=== PATIENT | female | born 1945 | race Asian ===

== ENCOUNTER 2017-12-07 22:58 | Emergency (ER) | payer OTHER ==
[~2017-12-07] VITALS: Ht 152.4 cm; Wt 56.7 kg
[~2017-12-07 22:58] MED LIST: AMLO5TAB8 PO; AMPI500C49 PO; CLOP75TA PO; DOXA2TAB2 PO; METO50TE2 PO; PRAV20TA2 PO; VALS320T2 PO
[2017-12-07 23:00] VITALS: BP 172/77
--- NOTE | 2017-12-07 23:06 | NUR ---
TO BED # 3 VIA WHEEL CHAIRWITH THE SON
--- NOTE | 2017-12-07 23:13 | NUR ---
72 y/o f W/C/O UPPER ABD PAIN X LAST THURSDAY. PT DENIES ANY NAUSEA/VOMITITNG OR DIARRHEA. MED HX HTN, HYPERLIPEDEMIA.
--- NOTE | 2017-12-07 23:19 | NUR ---
Dr. Astorga evaluating patient at bedside.
[2017-12-07] MEDS ORDERED: NACL 0.9% 1,000 ML IV ONE (23:20)
[2017-12-07] MEDS ORDERED: KETOROLAC 30 MG/ML VIAL IVP ONE (23:20)
[2017-12-07 23:57] LABS: BASOPHILS % (AUTO) 0.2 % (0.0-2.0); EOSINOPHILS # (AUTO) 0.1 K/uL (0-0.4); EOSINOPHILS % (AUTO) 1.4 % (0.0-4.0); HEMATOCRIT 34.1 % (36-48); HEMOGLOBIN 10.4 g/dL (12.0-16.0); LYMPHOCYTES # (AUTO) 1.5 K/uL (2.5-16.5); LYMPHOCYTES % (AUTO) 22.4 % (20.5-51.1); MEAN CORPUSCULAR HEMOGLOBIN 22 pg (27-31); MEAN CORPUSCULAR HGB CONC 30 g/dL (33-37); MEAN CORPUSCULAR VOLUME 71.9 fL (80-94); MONOCYTES # (AUTO) 0.6 K/uL (0.8-1.0); NEUTROPHILS # (AUTO) 4.7 K/uL (1.8-7.7); PLATELET COUNT (AUTO) 234 K/uL (140-450); RED BLOOD CELL COUNT(AUTO) 4.74 MIL/uL (4.20-5.40); RED CELL DISTRIBUTION WIDTH 14.5 % (11.6-13.7); WHITE BLOOD COUNT (AUTO) 6.9 K/uL (4.8-10.8)
[2017-12-08 00:01] LABS: ANION GAP 13.9 (8-16); CARBON DIOXIDE 26.6 mmol/L (21-32); CHLORIDE 107 mmol/L (98-107); GLUCOSE 138 mg/dL (74-106); POTASSIUM 3.5 mmol/L (3.5-5.1); SODIUM SERUM 144 mmol/L (136-145); UREA NITROGEN, BLOOD 18 mg/dL (7-18)
--- NOTE | 2017-12-08 00:01 | NUR ---
PT TAKEN FOR CT VIA WHEELCHAIR.
[2017-12-08] MEDS ORDERED: PANTOPRAZOLE 40 MG INJ VIAL IVP ONE (00:05)
[2017-12-08 00:07] LABS: ALBUMIN 3.4 g/dL (3.4-5.0); ASPARTATE AMINOTRANSFERASE 40 U/L (15-37); TOTAL BILIRUBIN 0.2 mg/dL (0.0-1.0)
--- NOTE | 2017-12-08 00:54 | NUR ---
Patient appears to be resting comfortably in bed. Vital Signs within normal limits. Respirations even and unlabored.
[2017-12-08 01:22] VITALS: BP 140/68
--- NOTE | 2017-12-08 01:22 | NUR ---
Patient discharged with v/s stable. Written and verbal after care instructions given and explained. Patient alert, oriented and verbalized understanding of instructions. Ambulatory with steady gait. All questions addressed prior to discharge. ID band removed. Patient advised to follow up with PMD. Rx of PROTONIX, LACTULOSE, AND TRAMADOL given. Patient educated on indication of medication including possible reaction and side effects. Opportunity to ask questions provided and answered.
== END 2017-12-08 01:22 | disposition home or self-care (01) ==
LOC: MED 22:58
DX: R10.13 Epigastric pain (principal); I10 Essential (primary) hypertension; Z88.6 Allergy status to analgesic agent
CPT/HCPCS: 36415; 74176; 80053; 85025; 93005; 96361; 96374; 96375; 99285; C9113; J1885; J7030

== ENCOUNTER 2018-07-30 09:35 | Inpatient (IN) | payer OTHER ==
[~2018-07-30] VITALS: Ht 142.2 cm; Wt 50.3 kg
[2018-07-30 09:40] VITALS: BP 148/80
--- NOTE | 2018-07-30 09:45 | NUR ---
PT AMBULATES TO BED 11
--- NOTE | 2018-07-30 09:50 | NUR ---
72/ F BIB [facility]AGHTER, C/O OF HEADACHE X2 DAYS. JAIME IS INTERMITTENT ACHE 02/02. CHEST WALL PAIN IN THE MORNINGS ONLY, WITH DIFFICULTY BREATHING X 1 MONTH, DESCRIBES STABBING ONLY LAST A FEW MINS. PATIENT WAS DX WITH HTN A FEW MONTHS AGO AND SINCE THEN SHE C/O OF LEFT SIDED WEAKNESS WITH BLURRY VISION. PATIENT DENIES CHEST PAIN RADIATING, NO CHEST PAIN AT THIS TIME, DENIES BLURRY VISION, DIZZINESS, NUMBNESS OR TINGLING, N/V/D. PERRLA, BILATERAL EQUAL ARM STREGTHS, NO ARM DRIP, BLE STRENGTHS, CLEAR LUNG SONGS, BILATERAL PULSES NOTED, STRONG RADIAL, PEDAL PULSES, LESS THAN THREE SECOND CAP REFILL, AOX4, WITH STEADY GAIT, SAFETY PRECAUTIONS IN PLACE.
--- NOTE | 2018-07-30 09:54 | NUR ---
Patient being evaluated by physician at bedside.
[2018-07-30 10:25] LABS: BASOPHILS % (AUTO) 0.7 % (0.0-2.0); EOSINOPHILS # (AUTO) 0.1 K/uL (0-0.4); EOSINOPHILS % (AUTO) 1.9 % (0.0-4.0); HEMATOCRIT 34.7 % (36-48); HEMOGLOBIN 10.6 g/dL (12.0-16.0); LYMPHOCYTES # (AUTO) 1.2 K/uL (2.5-16.5); LYMPHOCYTES % (AUTO) 28.8 % (20.5-51.1); MEAN CORPUSCULAR HEMOGLOBIN 22 pg (27-31); MEAN CORPUSCULAR HGB CONC 31 g/dL (33-37); MEAN CORPUSCULAR VOLUME 71.2 fL (80-94); MONOCYTES # (AUTO) 0.4 K/uL (0.8-1.0); MONOCYTES % (AUTO) 10.9 % (1.7-9.3); NEUTROPHILS # (AUTO) 2.3 K/uL (1.8-7.7); NEUTROPHILS % (AUTO) 57.7 % (42.2-75.2); PLATELET COUNT (AUTO) 225 K/uL (140-450); RED BLOOD CELL COUNT(AUTO) 4.87 MIL/uL (4.20-5.40); RED CELL DISTRIBUTION WIDTH 14.8 % (11.6-13.7)
[2018-07-30 10:29] LABS: ANION GAP 10.4 (8-16); CARBON DIOXIDE 31.6 mmol/L (21-32); CHLORIDE 104 mmol/L (98-107); GLUCOSE 100 mg/dL (74-106); SODIUM SERUM 142 mmol/L (136-145); UREA NITROGEN, BLOOD 26 mg/dL (7-18)
--- NOTE | 2018-07-30 10:32 | NUR ---
RADIO TECH AT BEDSIDE TAKING PATIENT TO CT, VIA WHEELCHAIR.
--- NOTE | 2018-07-30 10:34 | NUR ---
PT TAKEN TO RADIOLOGY VIA WHEELCHAIR
[2018-07-30 10:35] LABS: ALBUMIN 3.6 g/dL (3.4-5.0); ASPARTATE AMINOTRANSFERASE 51 U/L (15-37); TOTAL BILIRUBIN 0.3 mg/dL (0.0-1.0)
--- NOTE | 2018-07-30 10:35 | NUR ---
DR. MACKEY AWARE OF PATIENT PAIN, HE STATES AFTER CT PAIN MEDICATION CAN BE DETERMINED.
[2018-07-30 10:56] LABS: APPEARANCE,URINE CLEAR (CLEAR); BILIRUBIN,URINE NEGATIVE (NEGATIVE); BLOOD, URINE NEGATIVE (NEGATIVE); COLOR,URINE YELLOW (YELLOW); LEUKOCYTE ESTERASE ,URINE NEGATIVE (NEGATIVE); NITRITE, URINE NEGATIVE (NEGATIVE); UGLUCOSE NEGATIVE (NEGATIVE)
[2018-07-30] MEDS ORDERED: ONDANSETRON 4 MG/2 ML VIAL IM/IVP PRN (11:55)
[2018-07-30] MEDS ORDERED: DOCUSATE SODIUM 100 MG GELCAP PO PRN (11:55)
[2018-07-30] MEDS ORDERED: LORazepam 2 MG/ML VIAL IM/IVP PRN (11:55)
[2018-07-30] MEDS ORDERED: KETOROLAC 15 MG/ML VIAL IVP PRN (12:25)
[2018-07-30] MEDS ORDERED: ECOTRIN 81 MG TABEC PO ONE (12:25)
[2018-07-30] MEDS ORDERED: hydrALAZINE 20 MG/ML VIAL IVP PRN (12:45)
--- NOTE | 2018-07-30 12:57 | NUR ---
PT TAKEN TO [facility] FLOOR BY DEIRDRE CAMPOS VIA WHEELCHAIR
[2018-07-30 13:00] LABS: MAGNESIUM 1.7 mg/dL (1.8-2.4); PHOSPHORUS 3.6 mg/dL (2.5-4.9); THYROID STIMULATING HORMONE 3.38 uIU/mL (0.34-3.74)
--- NOTE | 2018-07-30 13:05 | NUR ---
Pt report given to Merrick GILMORE. Transfer of care at this time.
[2018-07-30] MEDS ORDERED: HYDR100T79 PO (13:08)
[2018-07-30] MEDS ORDERED: TRI48 PO (13:08)
[2018-07-30] MEDS ORDERED: RANI150C PO (13:08)
[2018-07-30] MEDS ORDERED: AMLO5TAB PO (13:08)
[2018-07-30] MEDS ORDERED: HYDR-3298 PO (13:08)
[2018-07-30] MEDS ORDERED: MAG SULF 2000 MG/WATER PREMIX 50 ML IV ONE (13:10)
--- NOTE | 2018-07-30 13:15 | NUR ---
RECEIVED PT. FROM ER, TRANSPORTED VIA W/C. CHIEF COMPLAINT OF CHEST PAIN, CEPHALAGIA. BP 168/62 UPON ADMISSION INTO THE UNIT, ADMINISTERED HYDRALAZINE. SKIN INTACT, IV SITE LEFT ANTECUBITAL, NS RUNNING AT 40mL/HR; FLUSHED AND PATENT. PT. A/Ox4. WILL CONTINUE TO MONITOR.
[2018-07-30] MEDS: NACL 0.9% 1,000 ML IV SCH (13:22)
[2018-07-30 13:30] VITALS: BP 168/62
[2018-07-30] MEDS ORDERED: NITROGLYCERIN 0.4 MG TAB SL PRN (13:45)
[2018-07-30] MEDS ORDERED: ALBUTEROL SULFATE/IPRATROPIU 3 ML SOL IH PRN (13:45)
--- NOTE | 2018-07-30 13:45 | NUR ---
NOTIFIED DR LEMUS PT'S BP IS HIGH.
[2018-07-30] MEDS: MAGNESIUM SULFATE 1GM in DEXTROSE 5% 100 ML PREMIX IV SCH ×2 (13:52→15:13)
[2018-07-30] MEDS ORDERED: CLOP75TA26 PO (14:40)
[2018-07-30 16:00] VITALS: BP 121/50
--- NOTE | 2018-07-30 16:00 | NUR ---
CHECKED VITALS AT 1600, ALL WNL. WILL CONTINUE TO MONITOR
--- NOTE | 2018-07-30 19:28 | NUR ---
ENDORSED TO PM SHIFT RN; PATIENT VITALS WNL. WILL CONTINUE TO MONITOR
--- NOTE | 2018-07-30 19:29 | NUR ---
RECEIVED PT. FROM AM SHIFT NURSE. CHIEF COMPLAINT OF CHEST PAIN, CEPHALAGIA. A/Ox4. TELE PT. IV SITE LEFT AC G 22, NS RUNNING AT 40ML/HR. PLACED AT LOWEST BED POSITION. CALL LIGHT WITHIN REACH. WILL CONTINUE TO MONITOR.
[2018-07-30 20:00] VITALS: BP 140/52
[2018-07-30] MEDS: METOPROLOL 25 MG TAB PO SCH (20:54)
--- NOTE | 2018-07-30 21:04 | NUR ---
PT REFUSED HEPARIN. SHE SAID NO SHOT. WILL TALK TO DAUGHTER TO CONVINCE MOTHER TO HAVE HEPARIN INJECTION.
--- NOTE | 2018-07-30 21:05 | NUR ---
INFORMED DR. SHEEHAN RE: REFUSAL OF HEPARIN. HE SAID TO PUT PT ON SEQUENTIAL DEVICE FOR NOW. WILL CONVINCE PT. W/ THE HELP OF DAUGHTER.
[2018-07-30] MEDS: amLODIPine 5 MG TAB PO SCH (21:06)
--- NOTE | 2018-07-30 21:30 | NUR ---
INFORMED DAUGHTER THROUGH PHONE CALL, SHE SAID THAT HER MOTHER CONCEDES FOR HEPARIN INJECTION TOMORROW. INFORMED THE DAUGHTER OF THE BENEFITS AND RISKS. PT AND DAUGHTER VERBALIZED UNDERSTANDING.
[2018-07-31] VITALS: BP 126/57
--- NOTE | 2018-07-31 02:00 | NUR ---
PT SLEEPING IN STABLE CONDITION. NO COMPLAINTS AT THIS TIME.
[2018-07-31 04:00] VITALS: BP 130/54
--- NOTE | 2018-07-31 04:10 | NUR ---
PT SLEEPING, NO SOB NOTED. NO COMPLAINTS OF HEADACHE AND CHEST PAIN.
[2018-07-31 06:31] LABS: BASOPHILS % (AUTO) 0.7 % (0.0-2.0); EOSINOPHILS # (AUTO) 0.1 K/uL (0-0.4); EOSINOPHILS % (AUTO) 1.7 % (0.0-4.0); HEMATOCRIT 39.1 % (36-48); HEMOGLOBIN 11.9 g/dL (12.0-16.0); LYMPHOCYTES # (AUTO) 1.4 K/uL (2.5-16.5); LYMPHOCYTES % (AUTO) 29.9 % (20.5-51.1); MEAN CORPUSCULAR HEMOGLOBIN 22 pg (27-31); MEAN CORPUSCULAR HGB CONC 31 g/dL (33-37); MEAN CORPUSCULAR VOLUME 71.9 fL (80-94); MONOCYTES # (AUTO) 0.4 K/uL (0.8-1.0); MONOCYTES % (AUTO) 8.4 % (1.7-9.3); NEUTROPHILS # (AUTO) 2.8 K/uL (1.8-7.7); NEUTROPHILS % (AUTO) 59.3 % (42.2-75.2); PLATELET COUNT (AUTO) 269 K/uL (140-450); RED BLOOD CELL COUNT(AUTO) 5.44 MIL/uL (4.20-5.40); RED CELL DISTRIBUTION WIDTH 14.9 % (11.6-13.7); WHITE BLOOD COUNT (AUTO) 4.8 K/uL (4.8-10.8)
[2018-07-31 06:56] LABS: CHOL/HDL RATIO 2.3 (1-4.5)
[2018-07-31 06:57] LABS: ANION GAP 10.9 (8-16); CARBON DIOXIDE 30.3 mmol/L (21-32); CHLORIDE 104 mmol/L (98-107); CREATININE 0.9 mg/dL (0.6-1.3); GLUCOSE 130 mg/dL (74-106); POTASSIUM 4.2 mmol/L (3.5-5.1); SODIUM SERUM 141 mmol/L (136-145); UREA NITROGEN, BLOOD 22 mg/dL (7-18)
[2018-07-31 06:59] LABS: MAGNESIUM 2.1 mg/dL (1.8-2.4); PHOSPHORUS 3.2 mg/dL (2.5-4.9)
[2018-07-31] MEDS: PANTOPRAZOLE 40 MG TABEC PO SCH (07:05)
--- NOTE | 2018-07-31 07:30 | NUR ---
PATIENT WAS AWAKE, ALERT. RESPIRATION EVEN, UNLABOR ON ROOM AIR. SKIN DRY AND WARM. IV PATENT AND INTACT. ADMITTED HAVING MILD CHEST PAIN AND HEADACHE, BUT REFUSED PAIN MEDICATION AT THIS TIME. DENIED SOB, N/V. PLAN OF CARE WAS DISCUSSED WITH PATIENT. BED AT LOW POSITION, SIDE RAILS UP. CALL LIGHT WITHIN REACH
--- NOTE | 2018-07-31 07:30 | NUR ---
ENDORSED TO AM SHIFT NURSE WITH NO COMPLAINTS, AND IN STABLE CONDITION.
[2018-07-31 08:00] VITALS: BP 121/49
[2018-07-31] MEDS: FENOFIBRATE 48 MG TAB PO SCH (08:31)
[2018-07-31] MEDS: METOPROLOL 25 MG TAB PO SCH ×2 (08:31→20:08)
[2018-07-31] MEDS: CLOPIDOGREL 75 MG TAB PO SCH (08:31)
[2018-07-31] MEDS: HYDROCHLOROTHIAZIDE 25 MG TAB PO SCH (08:31)
[2018-07-31] MEDS: LOSARTAN 50 MG TAB PO SCH (08:32)
--- NOTE | 2018-07-31 10:15 | NUR ---
PATIENT WAS AWAKE, ALERT. RESPIRATION EVEN, UNLABOR ON ROOM AIR. NO DISTRESS NOTED AT THIS TIME.
[2018-07-31 12:00] VITALS: BP 134/51
[2018-07-31 12:21] LABS: FOLIC ACID 17.1 ng/mL (>3.0)
--- NOTE | 2018-07-31 12:30 | NUR ---
PATIENT WAS AWAKE, ALERT, EATING LUNCH COMFORTABLY. RESPIRATION EVEN, UNLABOR ON ROOM AIR. DENIED PAIN, SOB AT THIS TIME. NO DISTRESS NOTED. CALL LIGHT WITHIN REACH
--- NOTE | 2018-07-31 14:30 | NUR ---
PATIENT WAS AWAKE, ALERT. RESPIRATION EVEN, UNLABOR ON ROOM AIR. NO DISTRESS NOTED AT THIS TIME
[2018-07-31] MEDS: NACL 0.9% 1,000 ML IV SCH (15:27)
[2018-07-31 16:00] VITALS: BP 114/53
--- NOTE | 2018-07-31 16:00 | NUR ---
PATIENT AWAKE, ALERT. RESPIRATION EVEN, UNLABOR ON ROOM AIR. DENIED PAIN, SOB. NO DISTRESS NOTED AT THIS TIME. CALL LIGHT WITHIN REACH
--- NOTE | 2018-07-31 16:22 | NUR ---
Practice Manager Notes: I attempted to contact Patient's daughter Tammy Green at . No response and I left her my direct contact information and a request for a call back.
--- NOTE | 2018-07-31 18:15 | NUR ---
PATIENT WAS AWAKE, SITTING COMFORTABLY. RESPIRATION EVEN, UNLABOR ON ROOM AIR. IV PATENT AND INTACT. NO DISTRESS NOTED AT THIS TIME
--- NOTE | 2018-07-31 19:17 | NUR ---
ENDORSEMENT GIVEN TO LABORATORY IMMUNOLOGIST NURSE. PATIENT IS STABLE AT THIS TIME
--- NOTE | 2018-07-31 19:18 | NUR ---
REPORT RECEIVED FROM AM NURSE AT BEDSIDE. PT IN STABLE CONDITION. AAOX4. INTRODUCED SELF TO PT. BOARD UPDATED. NO COMPLAINTS OF CHEST PAIN. NO SOB. AFEBRILE. IV SITE L AC 22G RUNNING NS@40ML/HR PATENT AND INTACT. SKIN WARM, DRY, AND INTACT WITH NO OPEN WOUNDS. BED LOCKED IN LOW POSITION. CALL BARNEY WITHIN REACH. SAFETY PRECAUTIONS IN PLACE. ALL NEEDS MET AT THIS TIME. WILL CONTINUE TO MONITOR.
[2018-07-31 20:00] VITALS: BP 128/53
[2018-07-31] MEDS: amLODIPine 5 MG TAB PO SCH (20:08)
--- NOTE | 2018-07-31 20:08 | NUR ---
NORVASC AND LOPRESSOR GIVEN PO. PT TOLERATED WELL.
--- NOTE | 2018-07-31 22:30 | NUR ---
PT LAYING IN BED LISTENING TO MUSIC. NO S/S OF DISTRESS NOTED. WILL CONTINUE TO MONITOR.
[2018-08-01] VITALS: BP 121/54
--- NOTE | 2018-08-01 01:00 | NUR ---
PT SLEEPING COMFORTABLY BUT AROUSEABLE. NO S/S OF DISTRESS NOTED. WILL CONTINUE TO MONITOR.
--- NOTE | 2018-08-01 02:30 | NUR ---
PT SLEEPING COMFORTABLY BUT AROUSEABLE. NO S/S OF DISTRESS NOTED. WILL CONTINUE TO MONITOR.
[2018-08-01 04:00] VITALS: BP 134/57
[2018-08-01] MEDS: PANTOPRAZOLE 40 MG TABEC PO SCH (05:41)
--- NOTE | 2018-08-01 05:41 | NUR ---
PROTONIX GIVEN PO. PT TOLERATED WELL.
--- NOTE | 2018-08-01 06:13 | NUR ---
PATIENT HAS BEEN SCREENED AND CATEGORIZED MODERATE NUTRITION RISK. PATIENT WILL BE SEEN WITHIN 3-5 DAYS OF ADMISSION. 08/02/18-08/04/18 VIRGINIE WU MS, RDN
[2018-08-01] MEDS ORDERED: PNEUMOCOCCAL VACCINE 23 MCG/0.5 ML VIAL IMVAC PRN (06:50)
[2018-08-01] MEDS ORDERED: INFLUENZA VIRUS VACCINE QUAD 0.5 ML SYR IMVAC PRN (06:50)
--- NOTE | 2018-08-01 07:05 | NUR ---
REPORT GIVEN TO AM NURSE AT BEDSIDE. PT IN STABLE CONDITION.
[2018-08-01 07:10] LABS: HEMATOCRIT 38.2 % (36-48); HEMOGLOBIN 11.5 g/dL (12.0-16.0); MEAN CORPUSCULAR HEMOGLOBIN 22 pg (27-31); MEAN CORPUSCULAR HGB CONC 30 g/dL (33-37); MEAN CORPUSCULAR VOLUME 72.2 fL (80-94); PLATELET COUNT (AUTO) 262 K/uL (140-450); RED CELL DISTRIBUTION WIDTH 14.8 % (11.6-13.7); WHITE BLOOD COUNT (AUTO) 6.3 K/uL (4.8-10.8)
--- NOTE | 2018-08-01 07:24 | NUR ---
REPORT RECEIVED FROM INTERNAL REVENUE SERVICE AGENT RN AT BEDSIDE. PT IN STABLE CONDITION. AAOX4. INTRODUCED SELF TO PT. BOARD UPDATED. NO COMPLAINTS OF CHEST PAIN. NO SOB. AFEBRILE. IV SITE L AC 22G RUNNING NS@40ML/HR PATENT AND INTACT. SKIN WARM, DRY, AND INTACT WITH NO OPEN WOUNDS. BED LOCKED IN LOW POSITION. CALL BARNEY WITHIN REACH. SAFETY PRECAUTIONS IN PLACE. ALL NEEDS MET AT THIS TIME. WILL CONTINUE TO MONITOR.
[2018-08-01 07:28] LABS: ANION GAP 10.7 (8-16); CARBON DIOXIDE 30.7 mmol/L (21-32); CHLORIDE 106 mmol/L (98-107); CREATININE 0.9 mg/dL (0.6-1.3); GLUCOSE 93 mg/dL (74-106); POTASSIUM 4.4 mmol/L (3.5-5.1); SODIUM SERUM 143 mmol/L (136-145); UREA NITROGEN, BLOOD 22 mg/dL (7-18)
[2018-08-01 07:57] LABS: BASOPHILS % (MANUAL) 0 % (0-2); EOSINOPHILS % (MANUAL) 2 % (0-4); LYMPHOCYTES % (MANUAL) 42 % (20-46); MONOCYTES % (MANUAL) 9 % (5-12)
[2018-08-01 08:00] VITALS: BP 149/54
[2018-08-01] MEDS: LOSARTAN 50 MG TAB PO SCH (09:08)
[2018-08-01] MEDS: CLOPIDOGREL 75 MG TAB PO SCH (09:09)
[2018-08-01] MEDS: METOPROLOL 25 MG TAB PO SCH (09:10)
[2018-08-01] MEDS: HYDROCHLOROTHIAZIDE 25 MG TAB PO SCH (09:10)
[2018-08-01] MEDS: FENOFIBRATE 48 MG TAB PO SCH (09:11)
--- NOTE | 2018-08-01 09:21 | NUR ---
PT SLEEPING COMFORTABLY BUT AROUSEABLE. NO S/S OF DISTRESS NOTED. WILL CONTINUE TO MONITOR.
--- NOTE | 2018-08-01 11:51 | NUR ---
PT IN ROOM WALKING AROUND. NO SIGNS OF DISTRESS NOTED. CALL LIGHT WITHIN REACH, BED IN LOW POSITION.
[2018-08-01 12:00] VITALS: BP 139/52
[2018-08-01] MEDS ORDERED: TRI48 PO (12:17)
[2018-08-01] MEDS ORDERED: METO25TA14 PO (12:21)
[2018-08-01] MEDS: NACL 0.9% 1,000 ML IV SCH (12:30)
--- NOTE | 2018-08-01 13:40 | NUR ---
FAXED ALL PAPER WORK FOR [facility] , PER JONAS THEY CAN ACCEPT PATIENT AND WILL FOLLOW UP TOMORROW.
--- NOTE | 2018-08-01 15:20 | NUR ---
PT DISCHARGED TO HOME WITH DAUGHTER. IV REMOVED WITH TIP INTACT. NO SIGNS OF DISTRESS. EDUCATION GIVEN ON DISCHARGE AND NEW MEDICATIONS. NOTIFIED PT AND DAUGHTER OF HOME HEALTH VISITS FOR PT. PT AND DAUGHTER VERBALIZED UNDERSTANDING. PER PT AND DAUGHTER, PT RECEIVED PNA VACCINE AND FLU VACCINES IN APR 2018. NO NEED FOR VACCINES TO BE GIVEN AT THIS TIME. DISCHARGE PAPERWORK GIVEN TO PT. PT STABLE AT THIS TIME. NO SIGNS OF CHEST PAIN OR SOB. ARM BAND REMOVED AND PERSONAL BELONGINGS TAKEN WITH PT.
--- NOTE | 2018-08-02 10:02 | NUR ---
CALLED JONAS FROM [facility] AND CONFIRMED THEY GOT THE ORDER FOR HOME HEALTH. THEY WILL BE CONTACTING THE PATIENT TODAY.
== END 2018-08-01 15:20 | disposition home health service (06) | DRG 205 ==
LOC: MED 09:35 → MTU 11:58
PROVIDERS: ADMIT General Practice; ATTEND General Practice
DX: M94.0 Chondrocostal junction syndrome [Tietze] (principal); N17.0 Acute kidney failure with tubular necrosis; J98.11 Atelectasis; K21.9 Gastro-esophageal reflux disease without esophagitis; R51 Headache; I10 Essential (primary) hypertension; J32.3 Chronic sphenoidal sinusitis; I25.10 Atherosclerotic heart disease of native coronary artery without angina pectoris; E86.0 Dehydration; E66.3 Overweight; E83.42 Hypomagnesemia; D64.9 Anemia, unspecified; E78.00 Pure hypercholesterolemia, unspecified; F32.9 Major depressive disorder, single episode, unspecified; Z79.899 Other long term (current) drug therapy; Z88.5 Allergy status to narcotic agent; Z68.25 Body mass index [BMI] 25.0-25.9, adult
CPT/HCPCS: 36415; 70450; 71045; 80048; 80053; 81003; 82607; 82728; 82746; 83036; 83540; 83690; 83735; 83880; 84100; 84134; 84439; 84443; 84484; 85025; 85045; 85610; 85730; 87081; 97110; 99285; J0360; J1644; Q0092

== ENCOUNTER 2019-04-01 22:28 | Emergency (ER) | payer OTHER ==
[~2019-04-01] VITALS: Ht 149.9 cm; Wt 46.7 kg
[~2019-04-01 22:28] MED LIST changes: +AMLO5TAB PO; -AMLO5TAB8 PO; -AMPI500C49 PO; -CLOP75TA PO; +CLOP75TA26 PO; -DOXA2TAB2 PO; +HYDR-3298 PO; +HYDR100T79 PO; +METO25TA14 PO; -METO50TE2 PO; -PRAV20TA2 PO; +RANI150C PO; +TRI48 PO; -VALS320T2 PO
[2019-04-01 22:54] VITALS: BP 125/42
--- NOTE | 2019-04-01 22:55 | NUR ---
TRIAGE COMPLETED WITH USE OF NURSE GYNECOLOGY PHONE. NURSE GYNECOLOGY #[id number]. VSS. OKAY TO WAIT IN LOBBY FOR BED IN ED.
[2019-04-01] MEDS ORDERED: FENO145T PO (23:02)
[2019-04-01] MEDS ORDERED: PRAV20TA2 PO (23:04)
[2019-04-01 23:27] LABS: BASOPHILS % (AUTO) 0.2 % (0.0-2.0); EOSINOPHILS % (AUTO) 0.2 % (0.0-4.0); LYMPHOCYTES # (AUTO) 0.7 K/uL (2.5-16.5); MEAN CORPUSCULAR HEMOGLOBIN 22 pg (27-31); MEAN CORPUSCULAR HGB CONC 31 g/dL (33-37); MEAN CORPUSCULAR VOLUME 71.5 fL (80-94); MONOCYTES # (AUTO) 0.5 K/uL (0.8-1.0); MONOCYTES % (AUTO) 11.2 % (1.7-9.3); NEUTROPHILS % (AUTO) 71.4 % (42.2-75.2); PLATELET COUNT (AUTO) 227 K/uL (140-450); RED BLOOD CELL COUNT(AUTO) 5.03 MIL/uL (4.20-5.40); RED CELL DISTRIBUTION WIDTH 15.3 % (11.6-13.7); WHITE BLOOD COUNT (AUTO) 4.3 K/uL (4.8-10.8)
[2019-04-01 23:38] LABS: ANION GAP 9.4 (8-16); CHLORIDE 106 mmol/L (98-107); CREATININE 1.1 mg/dL (0.6-1.3); GLUCOSE 101 mg/dL (74-106); POTASSIUM 3.4 mmol/L (3.5-5.1); SODIUM SERUM 142 mmol/L (136-145); UREA NITROGEN, BLOOD 18 mg/dL (7-18)
[2019-04-01 23:43] LABS: ALBUMIN 3.7 g/dL (3.4-5.0); ASPARTATE AMINOTRANSFERASE 70 U/L (15-37); TOTAL BILIRUBIN 0.3 mg/dL (0.0-1.0)
--- NOTE | 2019-04-02 00:52 | NUR ---
73 Y/O FEMALE PRESENTS TO ED, C/O PAIN ON THROAT 03/05. PT STATES PAIN STARTED THURSDAY UNABLE TO ALLEVIATE PAIN. PT TOLERATES FOOD AND FLUID. PT HAS NO FEVER. PT HAS NON PRODUCTIVE COUGH. PT DENIES ANY SOB BUT C/O OF MILD CHEST PAIN 10/03. PT VSS. ERMD AWARE. WILL CONTINUE TO MONITOR.
[2019-04-02 02:40] VITALS: BP 119/56
--- NOTE | 2019-04-02 02:45 | NUR ---
PT DISCHARGED WITH PAPERWORK. RX MOTRIN, PREDNISONE. EDUCATED PT REGARDING MEDICATIONS AND S/E. EDUCATED PT REGARDING D/C DIAGNOSIS. PT VERBALIZED UNDERSTANDING OF TEACHING. TOLD PT TO FOLLOW UP WITH PCP AND WHEN TO RETURN TO ED. PT VSS. ALL QUESTIONS ANSWERED.
[2019-04-02] MEDS ORDERED: PRAV20TA2 PO (20:00)
[2019-04-02] MEDS ORDERED: METO50TE2 PO (20:00)
[2019-04-02] MEDS ORDERED: HYDR100T79 PO (20:00)
[2019-04-02] MEDS ORDERED: CLOP75TA55 PO (20:00)
[2019-04-02] MEDS ORDERED: HYDR-3298 PO (20:00)
[2019-04-02] MEDS ORDERED: FENO145T PO (20:00)
== END 2019-04-02 02:40 | disposition home or self-care (01) ==
LOC: MED 22:28
DX: R05 Cough (principal); R07.89 Other chest pain; I10 Essential (primary) hypertension; Z88.5 Allergy status to narcotic agent; Z79.899 Other long term (current) drug therapy
CPT/HCPCS: 36415; 71045; 80053; 81002; 85025; 99284

== ENCOUNTER 2019-04-02 16:34 | Inpatient (IN) | payer OTHER ==
[~2019-04-02] VITALS: Ht 149.9 cm; Wt 48.5 kg
[~2019-04-02 16:34] MED LIST changes: -AMLO5TAB PO; +FENO145T PO; +PRAV20TA2 PO; -RANI150C PO; -TRI48 PO
[2019-04-02 16:38] VITALS: BP 149/76
--- NOTE | 2019-04-02 16:44 | NUR ---
PT AMB TO BED 6 WITH STEADY GAIT
--- NOTE | 2019-04-02 16:50 | NUR ---
C/O FEVER AND CHEST DISCOMFORT WITH COUGH. 100.4 IN TRIAGE ORAL. WAS SEEN LAST NIGHT AND GIVEN PREDNISONE AND IBUPROFEN. PRESCRIPTION HAS BEEN FILLED AND PT IS TAKING ACCORDINGLY WITH NO RELIEF. PRODUCTIVE COUGH- THICK YELLOW, AND SNEEZING, RHINORRHEA. COARSE LUNG SOUNDS. SUPRACLAVICULAR RETRACTIONS. VISITED RELATIVE LAST WEEK WHO HAD FEVER AND COUGH. TOOK MOTRIN AT 1500 PMH- HIGH CHOLESTEROL, HTN
--- NOTE | 2019-04-02 16:55 | NUR ---
DR. ROSALES AT BEDSIDE EVALUATING PATIENT.
[2019-04-02] MEDS ORDERED: ACETAMINOPHEN 325 MG TAB PO ONE (17:00)
[2019-04-02] MEDS ORDERED: NACL 0.9% 1,000 ML IV ONE (17:02)
--- NOTE | 2019-04-02 17:09 | NUR ---
EMT AT BEDSIDE FOR EKG.
[2019-04-02] MEDS ORDERED: ACETAMINOPHEN 325 MG TAB ONE (17:15)
--- NOTE | 2019-04-02 17:16 | NUR ---
LABS AT BEDSIDE
--- NOTE | 2019-04-02 17:26 | NUR ---
XRAY AT BEDSIDE
[2019-04-02 17:40] LABS: BASOPHILS % (AUTO) 0.2 % (0.0-2.0); HEMATOCRIT 33.8 % (36-48); HEMOGLOBIN 10.6 g/dL (12.0-16.0); LYMPHOCYTES # (AUTO) 0.5 K/uL (2.5-16.5); LYMPHOCYTES % (AUTO) 9.6 % (20.5-51.1); MEAN CORPUSCULAR HEMOGLOBIN 22 pg (27-31); MEAN CORPUSCULAR HGB CONC 31 g/dL (33-37); MEAN CORPUSCULAR VOLUME 71.2 fL (80-94); MONOCYTES # (AUTO) 0.1 K/uL (0.8-1.0); MONOCYTES % (AUTO) 2.8 % (1.7-9.3); NEUTROPHILS # (AUTO) 4.5 K/uL (1.8-7.7); NEUTROPHILS % (AUTO) 87.4 % (42.2-75.2); PLATELET COUNT (AUTO) 190 K/uL (140-450); RED BLOOD CELL COUNT(AUTO) 4.74 MIL/uL (4.20-5.40); RED CELL DISTRIBUTION WIDTH 15.1 % (11.6-13.7); WHITE BLOOD COUNT (AUTO) 5.1 K/uL (4.8-10.8)
[2019-04-02 17:46] LABS: APPEARANCE,URINE CLEAR (CLEAR); BILIRUBIN,URINE NEGATIVE (NEGATIVE); BLOOD, URINE NEGATIVE (NEGATIVE); COLOR,URINE YELLOW (YELLOW); LEUKOCYTE ESTERASE ,URINE NEGATIVE (NEGATIVE); NITRITE, URINE NEGATIVE (NEGATIVE); UGLUCOSE NEGATIVE (NEGATIVE)
[2019-04-02 17:54] LABS: ANION GAP 10.7 (8-16); CARBON DIOXIDE 27.7 mmol/L (21-32); CHLORIDE 101 mmol/L (98-107); CREATININE 0.9 mg/dL (0.6-1.3); GLUCOSE 118 mg/dL (74-106); POTASSIUM 3.4 mmol/L (3.5-5.1); SODIUM SERUM 136 mmol/L (136-145); UREA NITROGEN, BLOOD 17 mg/dL (7-18)
[2019-04-02 17:57] LABS: PROTHROMBIN TIME 9.6 secs (10.8-13.4)
[2019-04-02 18:08] LABS: ALBUMIN 3.5 g/dL (3.4-5.0); ASPARTATE AMINOTRANSFERASE 61 U/L (15-37); LIPASE 357 U/L (73-393); TOTAL BILIRUBIN 0.4 mg/dL (0.0-1.0)
[2019-04-02] MEDS ORDERED: AZITHROMYCIN 500 MG in DEXTROSE 5% 250 ML IV ONE (18:35)
[2019-04-02] MEDS ORDERED: cefTRIAXone 1,000 MG VIAL ONE (18:51)
[2019-04-02] MEDS ORDERED: AZITHROMYCIN 500 MG INJ VIAL IV ONE (18:52)
[2019-04-02] MEDS ORDERED: ONDANSETRON 4 MG/2 ML VIAL IM/IVP PRN (19:00)
[2019-04-02] MEDS ORDERED: FAMOTIDINE 20 MG/2 ML VIAL IV PRN (19:00)
[2019-04-02] MEDS ORDERED: ACETAMINOPHEN 325 MG TAB PO PRN (19:00)
[2019-04-02] MEDS ORDERED: DOCUSATE SODIUM 100 MG GELCAP PO PRN (19:00)
--- NOTE | 2019-04-02 19:15 | NUR ---
Patient will be admitted to care of DR. SHORE. Admited to TELE. Will go to room 107B. Belongings list completed. Report to DEIRDRE FRIAS.
--- NOTE | 2019-04-02 19:30 | NUR ---
RECEIVED BEDSIDE REPORT FROM MORIAH CRUZ RN. PATIENT IS AWAKE, ALERT, AND COOPERATIVE. SPEAKING CHILEAN BUT UNDERSTAND SOME [place]. ADMITTING DIAGNOSIS FEVER, DYSPNEA. RESPIRATION EVEN UNLABORED ON ROOM AIR. NO DISTRESS NOTED. SKIN IS WARM AND DRY. IV PATENT AND INTACT. DENIES PAIN. HEART RATE REGULAR, S1 & S2 NOTED. LUNGS SOUNDS CLEAR ON AUSCULTATION. BOWEL SOUNDS ACTIVE AND PRESENT IN ALL 4 QUADRANTS. ABDOMEN SOFT AND NON-TENDER. LAST BM 03/31/19. VITALS WERE TAKEN. MRSA SCREEN DONE. ORIENT PATIENT TO ROOM, STAFF, AND CALL LIGHT. PATIENT IS AMBULATORY. ALL SAFETY MEASURES IN PLACE. PLAN OF CARE WAS DISCUSSED. BED IS AT LOW POSITION. CALL LIGHT WITHIN REACH AND VERBALIZES ITS USE. WILL CONTINUE TO MONITOR.
[2019-04-02 19:34] LABS: CHOL/HDL RATIO 2.5 (1-4.5); FREE T4 (FREE THYROXINE) 1.26 ng/dL (0.76-1.46); MAGNESIUM 1.6 mg/dL (1.8-2.4); PHOSPHORUS 2.8 mg/dL (2.5-4.9); THYROID STIMULATING HORMONE 1.71 uIU/mL (0.34-3.74)
[2019-04-02 19:54] LABS: CKMB RELATIVE INDEX 0.6 (0.0-2.5); CREATINE KINASE MB 3.9 ng/mL (0-3.6)
[2019-04-02] MEDS ORDERED: CLOP75TA55 PO (20:00)
[2019-04-02] MEDS ORDERED: METO50TE2 PO (20:00)
[2019-04-02] MEDS ORDERED: PRAV20TA2 PO (20:00)
[2019-04-02] MEDS ORDERED: HYDR-3298 PO (20:00)
[2019-04-02] MEDS ORDERED: HYDR100T79 PO (20:00)
[2019-04-02] MEDS ORDERED: FENO145T PO (20:00)
[2019-04-02] MEDS ORDERED: POTASSIUM CHLORIDE 10 MEQ TABER PO ONE (20:10)
[2019-04-02] MEDS ORDERED: KETOROLAC 15 MG/ML VIAL IVP PRN (20:10)
[2019-04-02] MEDS ORDERED: MELATONIN 3 MG TAB PO PRN (20:20)
[2019-04-02] MEDS ORDERED: MEDICATION REC. PHARMACY CONS. 1 EA MISC MC PRN (20:20)
--- NOTE | 2019-04-02 21:00 | NUR ---
ALL SCHEDULED MEDS WERE GIVEN PER ORDER. NO ASE NOTED. WILL CONTINUE TO MONITOR.
[2019-04-02] MEDS: SIMVASTATIN 10 MG TAB PO SCH (21:08)
[2019-04-02] MEDS: METOPROLOL 25 MG TAB PO SCH (21:08)
[2019-04-02] MEDS: hydrALAZINE 25 MG TAB PO SCH (21:09)
[2019-04-02] MEDS: NACL 0.9% 1,000 ML IV SCH (21:17)
[2019-04-02 22:17] VITALS: BP 159/58
--- NOTE | 2019-04-02 22:59 | NUR ---
PATIENT SLEEPING RESPIRATION EVEN UNLABORED ON ROOM AIR. NO DISTRESS NOTED. CALL LIGHT WITHIN REACH. WILL CONTINUE TO MONITOR.
[2019-04-03] VITALS: BP 141/58
--- NOTE | 2019-04-03 | NUR ---
VITALS WERE TAKEN. PATIENT IN STABLE CONDITION. NO DISTRESS NOTED. DENIES PAIN. WILL CONTINUE TO MONITOR.
[2019-04-03] MEDS ORDERED: MAG SULF 2000 MG/WATER PREMIX 50 ML IV SCH (01:00)
--- NOTE | 2019-04-03 01:23 | NUR ---
ADMINISTERED MAG SULFATE 2GM PER ORDER. WILL CONTINUE TO MONITOR.
--- NOTE | 2019-04-03 02:11 | NUR ---
CHECKED PATIENT. PATIENT SLEEPING RESPIRATION EVEN UNLABORED ON ROOM AIR. NO DISTRESS NOTED. WILL CONTINUE TO MONITOR.
[2019-04-03] MEDS ORDERED: guaiFENesin 20 MG/ML UDC PO PRN (02:50)
[2019-04-03] MEDS: hydrALAZINE 20 MG/ML VIAL IVP PRN ×2 (03:58→23:52)
--- NOTE | 2019-04-03 03:58 | NUR ---
VITALS WERE TAKEN. PATIENT BP 167/60 HR 65 PRN HYDRALAZINE ADMINISTERED PER ORDER. WILL RECHECK BP IN AN HOUR.
[2019-04-03 04:00] VITALS: BP 167/60
[2019-04-03] MEDS ORDERED: ALBUTEROL SULFATE/IPRATROPIU 3 ML SOL IH PRN (04:50)
--- NOTE | 2019-04-03 04:58 | NUR ---
REASSESSED PATIENT BP 160/[address] SOLIS IS AWARE OF THE RESULT. WILL CONTINUE TO MONITOR
[2019-04-03] MEDS ORDERED: ALBUTEROL SULFATE/IPRATROPIU 3 ML SOL IH SCH (06:00)
--- NOTE | 2019-04-03 07:09 | NUR ---
ENDORSED PATIENT TO DAY SHIFT NURSE, PATIENT IN STABLE CONDITION.
--- NOTE | 2019-04-03 07:10 | NUR ---
RECEIVED REPORT FROM GAGE DESIGNER NURSE ALTAGRACIA FOR CONTINUITY OF CARE. PT IN STABLE CONDITION. IV INTACT AND PATENT. RESPIRATIONS EVEN AND UNLABORED, ROOM AIR. SAFETY MEASURES IN PLACE. BED IN LOW POSITION. CALL LIGHT AT BEDSIDE. WILL CONTINUE TO MONITOR.
[2019-04-03 08:00] VITALS: BP 153/68
[2019-04-03 08:08] LABS: BASOPHILS % (AUTO) 0.1 % (0.0-2.0); HEMATOCRIT 36.1 % (36-48); HEMOGLOBIN 11.3 g/dL (12.0-16.0); LYMPHOCYTES # (AUTO) 1.5 K/uL (2.5-16.5); LYMPHOCYTES % (AUTO) 18.7 % (20.5-51.1); MEAN CORPUSCULAR HEMOGLOBIN 23 pg (27-31); MEAN CORPUSCULAR HGB CONC 31 g/dL (33-37); MEAN CORPUSCULAR VOLUME 72.1 fL (80-94); MONOCYTES # (AUTO) 0.7 K/uL (0.8-1.0); MONOCYTES % (AUTO) 8.5 % (1.7-9.3); NEUTROPHILS # (AUTO) 5.8 K/uL (1.8-7.7); NEUTROPHILS % (AUTO) 72.7 % (42.2-75.2); PLATELET COUNT (AUTO) 214 K/uL (140-450); RED BLOOD CELL COUNT(AUTO) 5.01 MIL/uL (4.20-5.40); RED CELL DISTRIBUTION WIDTH 15.5 % (11.6-13.7)
[2019-04-03 08:24] LABS: ANION GAP 13.9 (8-16); CARBON DIOXIDE 26.4 mmol/L (21-32); CHLORIDE 104 mmol/L (98-107); CREATININE 0.8 mg/dL (0.6-1.3); GLUCOSE 86 mg/dL (74-106); POTASSIUM 3.3 mmol/L (3.5-5.1); SODIUM SERUM 141 mmol/L (136-145); UREA NITROGEN, BLOOD 14 mg/dL (7-18)
[2019-04-03] MEDS: FENOFIBRATE 48 MG TAB PO SCH (08:43)
[2019-04-03] MEDS: AZITHROMYCIN 250 MG TAB PO SCH (08:43)
[2019-04-03] MEDS: CLOPIDOGREL 75 MG TAB PO SCH (08:44)
[2019-04-03] MEDS: LOSARTAN 50 MG TAB PO SCH (08:44)
[2019-04-03] MEDS: hydrALAZINE 25 MG TAB PO SCH ×2 (08:45→20:51)
[2019-04-03] MEDS: METOPROLOL 25 MG TAB PO SCH ×2 (08:45→20:52)
[2019-04-03] MEDS: LACTOBACILLUS RHAMNOSUS GG 1 EACH CAP PO SCH (08:45)
[2019-04-03] MEDS ORDERED: POTASSIUM CHLORIDE 10 MEQ TABER PO SCH ×2 (09:00→16:00)
[2019-04-03] MEDS ORDERED: MAG SULF 2000 MG/WATER PREMIX 100 ML IV ONE (09:00)
[2019-04-03] MEDS ORDERED: ACETYLCYSTEINE 10% (100 MG/ML) 100 MG/ML VIAL INH SCH (09:00)
--- NOTE | 2019-04-03 09:00 | NUR ---
GAVE ORDERED DUE MEDICATIONS AT THIS TIME. CORRECTION WARDEN KIM #[id number]. ALL PT QUESTIONS ANSWERED AT THIS TIME. PT TOLERATED WELL. BED IN LOW POSITION. CALL LIGHT AT BEDSIDE. WILL CONTINUE TO MONITOR.
[2019-04-03] MEDS: NACL 0.9% 1,000 ML IV SCH ×2 (10:00→23:51)
--- NOTE | 2019-04-03 11:25 | NUR ---
PT LYING IN BED SLEEP AT THIS TIME. RESPIRATIONS EVEN AND UNLABORED. BED IN LOW POSITION. CALL LIGHT AT BEDSIDE.
[2019-04-03 12:00] VITALS: BP 157/49
[2019-04-03] MEDS: ACETYLCYSTEINE 10% (100 MG/ML) 100 MG/ML VIAL INH SCH ×2 (13:41→20:06)
[2019-04-03] MEDS: ALBUTEROL SULFATE/IPRATROPIU 3 ML SOL IH SCH ×2 (13:41→20:05)
--- NOTE | 2019-04-03 13:42 | NUR ---
RT AT BEDSIDE FOR BREATHING TREATMENT. PT IN STABLE CONDITION. BED IN LOW POSITION. CALL LIGHT AT BEDSIDE. WILL CONTINUE TO MONITOR.
[2019-04-03] MEDS: BENZONATATE 100 MG CAPLF PO SCH ×2 (14:01→17:07)
[2019-04-03 16:00] VITALS: BP 149/66
--- NOTE | 2019-04-03 16:14 | NUR ---
PT LYING IN BED QUIETLY. OFFERED TO TURN ON TV, PT REFUSED. RESPIRATIONS EVEN AND UNLABORED, ROOM AIR. BED IN LOW POSITION. CALL LIGHT AT BEDSIDE. WILL CONTINUE TO MONITOR.
--- NOTE | 2019-04-03 17:57 | NUR ---
PT SITTING AT SIDE OF THE BED EATING DINNER AT THIS TIME. BED IN LOW POSITION. CALL LIGHT AT BEDSIDE. WILL CONTINUE TO MONITOR.
--- NOTE | 2019-04-03 19:10 | NUR ---
RECEIVED BEDSIDE REPORT FROM DAY SHIFT NURSE. PATIENT IS AWAKE, ALERT AND COOPERATIVE. RESPIRATION EVEN UNLABORED ON ROOM AIR. NO DISTRESS NOTED. SKIN IS WARM AND DRY. IV PATENT AND INTACT. DENIES PAIN. PLAN OF CARE WAS DISCUSSED. ALL SAFETY MEASURES IN PLACE. BED IS AT LOW POSITION. CALL LIGHT WITHIN REACH AND VERBALIZES ITS USE. WILL CONTINUE TO MONITOR.
--- NOTE | 2019-04-03 19:25 | NUR ---
GAVE REPORT TO EQUIPMENT STERILIZER NURSE KISSROB FOR CONTINUITY OF CARE. PT IN STABLE CONDITION.
--- NOTE | 2019-04-03 20:00 | NUR ---
INITIAL ASSESSMENT DONE. VITALS WERE TAKEN. PATIENT IN STABLE CONDITION. WILL CONTINUE TO MONITOR.
[2019-04-03] MEDS: SIMVASTATIN 10 MG TAB PO SCH (20:52)
--- NOTE | 2019-04-03 21:00 | NUR ---
ALL SCHEDULED MEDS WERE GIVEN PER ORDER. NO ASE NOTED. CALL LIGHT WITHIN REACH. WILL CONTINUE TO MONITOR.
[2019-04-04] VITALS: BP 186/65
--- NOTE | 2019-04-04 | NUR ---
RECIEVED PT AAOX4 ,NID ,RA ON NPO -FOR US OF ABD. IV SITE INTACT AND PATENT , DENIES ANY PAIN AT THIS TIME , PLAN OF VCARE DISCUSSED AND VERBALIZE UNDERSTANDING . ON SAFETY/ FALL PRECAUTION PROTOCOL , CALL LIGHT WITHIN REACH , WILL CONT. TO MONITOR. Addendum: 04/05/19 at 0509 by Carla Patton RN THE ABOVE NURSES NOTES ENTRY TIME 0000 IS AN ERROR ENTRY . THE ABOVE NURSES NOTE IS DATED TIME -1921 -IAN
--- NOTE | 2019-04-04 | NUR ---
VITALS WERE TAKEN. PATIENT COMPLAINED OF HEADACHE. PRN TYLENOL GIVEN PER ORDER. PATIENT BP 187/65 HR 65 PRN HYDRALEZINE GIVEN PER ORDER. WILL CONTINUE TO MONITOR.
--- NOTE | 2019-04-04 03:28 | NUR ---
CHECKED PATIENT. PATIENT SLEEPING RESPIRATION EVEN UNLABORED ON ROOM AIR. NO DISTRESS NOTED. WILL CONTINUE TO MONITOR.
[2019-04-04 06:35] LABS: BASOPHILS % (AUTO) 0.2 % (0.0-2.0); EOSINOPHILS % (AUTO) 0.4 % (0.0-4.0); HEMATOCRIT 34.1 % (36-48); HEMOGLOBIN 10.6 g/dL (12.0-16.0); LYMPHOCYTES % (AUTO) 36.5 % (20.5-51.1); MEAN CORPUSCULAR HEMOGLOBIN 22 pg (27-31); MEAN CORPUSCULAR HGB CONC 31 g/dL (33-37); MEAN CORPUSCULAR VOLUME 71.4 fL (80-94); MONOCYTES # (AUTO) 0.9 K/uL (0.8-1.0); MONOCYTES % (AUTO) 16.5 % (1.7-9.3); NEUTROPHILS # (AUTO) 2.5 K/uL (1.8-7.7); NEUTROPHILS % (AUTO) 46.4 % (42.2-75.2); PLATELET COUNT (AUTO) 193 K/uL (140-450); RED BLOOD CELL COUNT(AUTO) 4.77 MIL/uL (4.20-5.40); RED CELL DISTRIBUTION WIDTH 15.1 % (11.6-13.7); WHITE BLOOD COUNT (AUTO) 5.4 K/uL (4.8-10.8)
--- NOTE | 2019-04-04 06:41 | NUR ---
PATIENT SLEEPING RESPIRATION EVEN UNLABORED ON ROOM AIR. NO DISTRESS NOTED. WILL CONTINUE TO MONITOR.
--- NOTE | 2019-04-04 07:12 | NUR ---
ENDORSED PATIENT TO DAY SHIFT NURSE. PATIENT IN STABLE CONDITION.
--- NOTE | 2019-04-04 07:13 | NUR ---
RECEIVED ENDORSEMENT FROM TOBACCO ACREAGE MEASURER NURSE. PATIENT IS AAOX4, UZBEK SPEAKING. RESPIRATIONS ARE EVEN AND UNLABORED ON ROOM AIR. PATIENT DENIES ANY PAIN AT THIS TIME. RIGHT WRIST 22G IV INTACT, PATENT, AND INFUSING IVF. PLAN OF CARE WAS REVIEWED WITH PATIENT, PATIENT VERBALIZED UNDERSTANDING. SAFETY MEASURES IN PLACE, CALL LIGHT WITHIN REACH.
[2019-04-04] MEDS: ALBUTEROL SULFATE/IPRATROPIU 3 ML SOL IH SCH ×3 (07:24→21:06)
[2019-04-04] MEDS: hydrALAZINE 20 MG/ML VIAL IVP PRN (07:41)
--- NOTE | 2019-04-04 07:41 | NUR ---
ADMINISTERED HYDRALAZINE IVP PRN FOR BP 184/74 AND HR 71. PATIENT TOLERATED WELL. WILL CONTINUE TO MONITOR.
[2019-04-04 08:00] VITALS: BP 184/74
[2019-04-04 08:01] LABS: ANION GAP 15.5 (8-16); CARBON DIOXIDE 24.8 mmol/L (21-32); CHLORIDE 106 mmol/L (98-107); GLUCOSE 81 mg/dL (74-106); POTASSIUM 4.3 mmol/L (3.5-5.1); SODIUM SERUM 142 mmol/L (136-145)
[2019-04-04 08:02] LABS: CREATININE 0.8 mg/dL (0.6-1.3); UREA NITROGEN, BLOOD 12 mg/dL (7-18)
--- NOTE | 2019-04-04 08:28 | NUR ---
PATIENT HAS BEEN SCREENED AND CATEGORIZED HIGH NUTRITION RISK. PATIENT WILL BE SEEN WITHIN 1-2 DAYS OF ADMISSION. 04/04/[address]
[2019-04-04] MEDS: METOPROLOL 25 MG TAB PO SCH ×2 (09:00→09:07)
[2019-04-04] MEDS: hydrALAZINE 25 MG TAB PO SCH ×2 (09:02→16:55)
[2019-04-04] MEDS: FENOFIBRATE 48 MG TAB PO SCH (09:02)
[2019-04-04] MEDS: LOSARTAN 50 MG TAB PO SCH (09:03)
[2019-04-04] MEDS: AZITHROMYCIN 250 MG TAB PO SCH (09:03)
[2019-04-04] MEDS: BENZONATATE 100 MG CAPLF PO SCH ×3 (09:03→16:06)
[2019-04-04] MEDS: LACTOBACILLUS RHAMNOSUS GG 1 EACH CAP PO SCH (09:03)
[2019-04-04] MEDS: CLOPIDOGREL 75 MG TAB PO SCH (09:03)
--- NOTE | 2019-04-04 09:07 | NUR ---
ADMINISTERED SCHEDULED MEDICATIONS. PATIENT TOLERATED WELL. NO COMPLAINTS OF PAIN AT THIS TIME. NO OTHER NEEDS AT THIS TIME, WILL CONTINUE TO MONITOR.
--- NOTE | 2019-04-04 11:54 | NUR ---
PATIENT RESTING IN BED. DENIES ANY PAIN AT THIS TIME. NO OTHER NEEDS AT THIS TIME, WILL CONTINUE TO MONITOR.
[2019-04-04] MEDS: NACL 0.9% 1,000 ML IV SCH (13:07)
--- NOTE | 2019-04-04 13:07 | NUR ---
ADMINISTERED SCHEDULED MEDICATION. PATIENT TOLERATED WELL. NO OTHER NEEDS AT THIS TIME, WILL CONTINUE TO MONITOR.
--- NOTE | 2019-04-04 13:25 | NUR ---
*S.T. Bedside Swallow eval completed* See report. Pt presents w/ adequate oropharyngeal swallow function. No overt s/s aspiration observed across all textures. Pt able to self-feed without difficulty. Recommend: 1) Continue mechanical soft diet, thin liquids okay. Straws okay. 2) P.O. meds whole okay, one at a time. 3) Nsg to assist w/ repositioning and tray set-up to promote self-feeding. Pt is functioning at her reported baseline level. No further tx indicated at this time. DC to nsg care. Endorsed to DEIRDRE Taylor. Time [id number]
--- NOTE | 2019-04-04 15:02 | NUR ---
PATIENT SLEEPING, EASILY AROUSABLE. DENIES ANY PAIN AT THIS TIME. NO DISTRESS NOTED. NO OTHER NEEDS AT THIS TIME, WILL CONTINUE TO MONITOR.
--- NOTE | 2019-04-04 15:40 | NUR ---
04/04/19 RD INITIAL ASSESSMENT COMPLETED PLEASE REFER TO NUTRITION ASSESSMENT UNDER CARE ACTIVITY FOR ESTIMATED NUTRITIONAL NEEDS. 1. CONTINUE MECHANICAL SOFT NA2GM DIET TOLERATED 2. RD PROVIDED NUTRITION EDUCATION ON LOW SODIUM DIET. PATIENT ACCEPTED VIA CHUCKING MACHINE SET UP OPERATOR TOOL ON PHONE. 3. RD TO FOLLOW-UP 3-5 DAYS, MODERATE RISK NACHO TOM RD
[2019-04-04] MEDS ORDERED: HYDROCHLOROTHIAZIDE 25 MG TAB PO SCH (15:45)
[2019-04-04 16:00] VITALS: BP 151/59
[2019-04-04] MEDS ORDERED: hydrALAZINE 25 MG TAB PO SCH (16:00)
--- NOTE | 2019-04-04 16:06 | NUR ---
ADMINISTERED SCHEDULED MEDICATION.PATIENT TOLERATED WELL. PATIENT DENIES ANY PAIN. NO OTHER NEEDS AT THIS TIME. WILL CONTINUE TO MONITOR.
--- NOTE | 2019-04-04 17:16 | NUR ---
HUMAN RESOURCES OPERATIONS MANAGER AT BEDSIDE. NO OTHER NEEDS AT THIS TIME, WILL CONTINUE TO MONITOR.
--- NOTE | 2019-04-04 19:22 | NUR ---
ENDORSED TO PATIENT FOR CONTINUITY OF CARE. PATIENT IS STABLE AT THIS TIME. Addendum: 04/04/19 at 1923 by Claudia Bridges RN *ENDORSED TO PEN OR PENCIL ASSEMBLY MACHINE OPERATOR
[2019-04-04] MEDS ORDERED: METOPROLOL 25 MG TAB PO SCH (21:00)
[2019-04-04] MEDS: SIMVASTATIN 10 MG TAB PO SCH (21:16)
--- NOTE | 2019-04-04 21:30 | NUR ---
PT COMPLAINING OF HUNGRY -SHE KEEPS ASKING WHEN THE ULTRASOUND WILL BE DONE . FOLLOW UP TO ULTRASOUND DEPT - THEY SAID THEY ARE NOT ACCOMODATE THE PT. RIGHT NOW BECAUSE THEY ARE BUSY IN THE ER AT THIS TIME. -THEY SUGGEST IF THE ULTRASOUND ORDERED IS NOT STAT , - ALLOW PT TO HAVE FOOD INTAKE AND PUT ON NPO POST MN AND THE ULTRASOUND WILL BE DONE TIMBO. MORNING - INFORMED LEA- AGREED.
[2019-04-05] VITALS: BP 150/60
--- NOTE | 2019-04-05 | NUR ---
REMIND PT ON NPO FOR ULTRASOUND TIMBO. NO COMPLAIN MADE AT THIS TIME.
--- NOTE | 2019-04-05 04:00 | NUR ---
MADE ROUND . NO COMPLAIN MADE AT THIS TIME. CALL LIGHT WITH IN REACH.
--- NOTE | 2019-04-05 07:25 | NUR ---
RECEIVED REPORT FROM HOGSHEAD ROLLER NURSE FOR CONTINUITY OF CARE. PT IN STABLE CONDITION. RESPIRATIONS EVEN AND UNLABORED, ROOM AIR. IV INTACT AND PATENT. SAFETY MEASURES IN PLACE. BED IN LOW POSITION. CALL LIGHT AT BEDSIDE. WILL CONTINUE TO MONITOR.
[2019-04-05 08:00] VITALS: BP 123/63
[2019-04-05] MEDS: ALBUTEROL SULFATE/IPRATROPIU 3 ML SOL IH SCH ×2 (08:25→14:22)
[2019-04-05] MEDS ORDERED: HYDROCHLOROTHIAZIDE 25 MG TAB PO SCH (09:00)
[2019-04-05] MEDS ORDERED: METOPROLOL SUCCINATE 50 MG TABER PO SCH (09:00)
--- NOTE | 2019-04-05 09:01 | NUR ---
PT TALKING TO FRIEND AT BEDSIDE. PT IN STABLE CONDITION.
[2019-04-05] MEDS ORDERED: HYDR100T79 PO (09:11)
[2019-04-05] MEDS ORDERED: LACT10CA1 PO (09:13)
[2019-04-05] MEDS ORDERED: CEFT1SOL1 IV (09:13)
[2019-04-05] MEDS: hydrALAZINE 25 MG TAB PO SCH ×3 (09:30→18:06)
[2019-04-05] MEDS: LOSARTAN 50 MG TAB PO SCH (09:31)
[2019-04-05] MEDS: AZITHROMYCIN 250 MG TAB PO SCH (09:31)
[2019-04-05] MEDS: LACTOBACILLUS RHAMNOSUS GG 1 EACH CAP PO SCH (09:32)
[2019-04-05] MEDS: CLOPIDOGREL 75 MG TAB PO SCH (09:32)
[2019-04-05] MEDS: FENOFIBRATE 48 MG TAB PO SCH (09:33)
--- NOTE | 2019-04-05 09:55 | NUR ---
CONTACTED PATIENT'S DAUGHTER ADDISON WAGNER AT [phone] REGARDING DC PLAN TO [facility]. PATIENT'S DAUGHTER IS AGREEABLE TO IT BY STATING "OK, BUT CAN YOU WAIT FOR ME. I WILL BE THERE IN AN HOUR." Addendum: 04/05/19 at 1004 by Essie Ku CM REFERRALS FAXED TO [facility] [place] AT [phone].
--- NOTE | 2019-04-05 10:10 | NUR ---
RECEIVED A CALL FROM CHELO OF [facility], SHE STATED THAT THEY ARE ABLE TO ACCEPT THE PATIENT AND PATIENT WILL GO TO ROOM 38B UNDER THE CARE OF DR. NICOLETTE LEIJA.
[2019-04-05 10:14] LABS: FERRITIN 310 ng/mL (15-150); FOLIC ACID > 20.00 ng/mL (>3.0); TRANSFERRIN 318 mg/dL (200-370)
--- NOTE | 2019-04-05 10:15 | NUR ---
FOOTWEAR PRODUCTION MACHINE OPERATOR ETHEL AT BEDSIDE TALKING TO PT AND JAIME DAUGHTER. PT IN STABLE CONDITION.
[2019-04-05] MEDS: BENZONATATE 100 MG CAPLF PO SCH ×3 (10:24→18:05)
--- NOTE | 2019-04-05 12:03 | NUR ---
PT LYING IN BED SLEEPING AT THIS TIME. RESPIRATIONS EVEN AND UNLABORED. BED IN LOW POSITION. CALL LIGHT AT BEDSIDE. WILL CONTINUE TO MONITOR.
[2019-04-05] MEDS ORDERED: ALBU3SOL83 IH (12:08)
[2019-04-05] MEDS ORDERED: ROB PO (12:08)
[2019-04-05] MEDS ORDERED: BENZ100C6 PO (12:08)
[2019-04-05] MEDS ORDERED: ESCI10TA PO (12:09)
[2019-04-05] MEDS: NACL 0.9% 1,000 ML IV SCH (12:10)
[2019-04-05] MEDS ORDERED: GUAI-646 PO (12:41)
--- NOTE | 2019-04-05 13:26 | NUR ---
MET WITH PATIENT'S DAUGHTER ADDISON WAGNER AT THE FRONT LOBBY TOGETHER WITH SW. WE INFORMED HER OF DC PLAN TO [facility] THIS AFTER. SHE IS AGREEABLE WITH THE PLAN.
--- NOTE | 2019-04-05 14:22 | NUR ---
PT SITTING AT SIDE OF BED LOOKING OUT THE WINDOW IN STABLE CONDITION. BED IN LOW POSITION. CALL LIGHT AT BEDSIDE. WILL CONTINUE TO MONITOR.
--- NOTE | 2019-04-05 14:28 | NUR ---
CONTACTED CHANDLER ORTIZ AT [phone] [id number], NO ANSWER. LEFT MESSAGE.
--- NOTE | 2019-04-05 15:39 | NUR ---
CALLED [facility] SPOKE WITH ETHEL , [phone] PER ETHEL SHE ARRANGED TRANSPORT AND MINE MOTOR ENGINEER TIME 5:30 PM THE CONFIRMATION #[id number] . PROVIDE THE FLOOR NUMBER. SHE IS UNABLE TO GIVE ME THE TRANSPORTER NAME BUT WE CAN CHECK WITH THIS NUMBER [phone]
[2019-04-05 16:00] VITALS: BP 151/59
--- NOTE | 2019-04-05 16:30 | NUR ---
PT CHANGED AND CLEANED TO PREPARE FOR TRANSPORT TO [facility] AT 1730.
--- NOTE | 2019-04-05 17:14 | NUR ---
GAVE REPORT TO EILEEN STAFF NURSE AT [facility] FOR CONTINUITY OF CARE. EILEEN VERBALIZED UNDERSTANDING OF INSTRUCTIONS. ALL QUESTIONS ANSWERED AT THIS TIME.
--- NOTE | 2019-04-05 18:55 | NUR ---
GAVE DISCHARGE INSTRUCTIONS PT VERBALIZED UNDERSTANDING OF INSTRUCTIONS. REMOVED ID BAND. DISCONNECTED IV TUBING. GAVE TRANSPORT INSTRUCTIONS TO TRANSPORT TEAM. TRANSPORT TEAM VERBALIZED UNDERSTANDING OF CARE. PT PLACED ON GURNEY IN STABLE CONDITION.
== END 2019-04-05 18:55 | DRG 70 ==
LOC: MED 16:34 → MTU 18:28
PROVIDERS: ADMIT General Practice; ATTEND General Practice
DX: G93.41 Metabolic encephalopathy (principal); E43 Unspecified severe protein-calorie malnutrition; J20.9 Acute bronchitis, unspecified; E87.6 Hypokalemia; E86.0 Dehydration; F32.9 Major depressive disorder, single episode, unspecified; E83.42 Hypomagnesemia; I10 Essential (primary) hypertension; E78.5 Hyperlipidemia, unspecified; Z68.21 Body mass index [BMI] 21.0-21.9, adult; Z88.5 Allergy status to narcotic agent; Z79.899 Other long term (current) drug therapy; Z82.49 Family history of ischemic heart disease and other diseases of the circulatory system
CPT/HCPCS: 36415; 71045; 80048; 80053; 81002; 81003; 82140; 82150; 82550; 82553; 82607; 82728; 82746; 83036; 83540; 83605; 83690; 83735; 83880; 84100; 84439; 84443; 84484; 85025; 85045; 85379; 85610; 85730; 87040; 87081; 87086; 92610; 93005; 93971; 93975; 93976; 94640; 96360; 97110; 97116; 97161-GP; 97530; 99285; J0360; J0456; J0696; J1644; J3475; J7030; J7060; J7620; Q0092

== ENCOUNTER 2023-09-07 09:32 | Emergency (ER) | payer OTHER ==
[~2023-09-07] VITALS: Ht 157.5 cm; Wt 61.2 kg
[~2023-09-07 09:32] MED LIST changes: +ALBU3SOL83 IH; +BENZ100C6 PO; +CEFT1SOL1 IV; -CLOP75TA26 PO; +CLOP75TA55 PO; +ESCI10TA PO; +LACT10CA1 PO; -METO25TA14 PO; +METO50TE2 PO; +MUC600 PO; +ROB PO
[2023-09-07 09:35] VITALS: BP 167/57; PULSE 72; RESP 14; TEMP 97.8; O2SAT 100
[2023-09-07 10:32] LABS: BASOPHILS % (AUTO) 0.4 % (0.0-2.0); EOSINOPHILS # (AUTO) 0.1 K/uL (0-0.4); EOSINOPHILS % (AUTO) 2.2 % (0.0-4.0); HEMOGLOBIN 10.5 g/dL (12.0-16.0); LYMPHOCYTES # (AUTO) 1.6 K/uL (2.5-16.5); LYMPHOCYTES % (AUTO) 24.2 % (20.5-51.1); MEAN CORPUSCULAR HEMOGLOBIN 23 pg (27-31); MEAN CORPUSCULAR HGB CONC 32 g/dL (33-37); MEAN CORPUSCULAR VOLUME 72.9 fL (80-94); MONOCYTES # (AUTO) 0.5 K/uL (0.8-1.0); MONOCYTES % (AUTO) 8.4 % (1.7-9.3); NEUTROPHILS # (AUTO) 4.2 K/uL (1.8-7.7); NEUTROPHILS % (AUTO) 64.8 % (42.2-75.2); PLATELET COUNT (AUTO) 215 K/uL (140-450); RED BLOOD CELL COUNT(AUTO) 4.53 MIL/uL (4.20-5.40); RED CELL DISTRIBUTION WIDTH 14.6 % (11.6-13.7); WHITE BLOOD COUNT (AUTO) 6.6 K/uL (4.8-10.8)
[2023-09-07 10:55] LABS: ANION GAP 13.5 (8-16); CARBON DIOXIDE 28.1 mmol/L (21-32); CHLORIDE 105 mmol/L (98-107); CREATININE 0.7 mg/dL (0.6-1.3); GLUCOSE 100 mg/dL (74-106); POTASSIUM 3.6 mmol/L (3.5-5.1); SODIUM SERUM 143 mmol/L (136-145); UREA NITROGEN, BLOOD 11 mg/dL (7-18)
[2023-09-07 11:03] LABS: ALANINE AMINOTRANSFERASE 28 U/L (12-78); ALBUMIN 3.3 g/dL (3.4-5.0); ALKALINE PHOSPHATASE 81 U/L (50-136); ASPARTATE AMINOTRANSFERASE 29 U/L (15-37); BILIRUBIN,DIRECT 0.1 mg/dL (0.0-0.3); TOTAL BILIRUBIN 0.4 mg/dL (0.0-1.0); TOTAL PROTEIN, SERUM 8.2 g/dL (6.4-8.2)
[2023-09-07 13:00] VITALS: BP 135/54; PULSE 62; RESP 14; TEMP 97.8; O2SAT 99
== END 2023-09-07 12:50 | disposition left against medical advice (07) ==
LOC: MED 09:32
DX: R07.9 Chest pain, unspecified (principal); R51.9 Headache, unspecified; I10 Essential (primary) hypertension; Z88.5 Allergy status to narcotic agent; Z79.899 Other long term (current) drug therapy
CPT/HCPCS: 36415; 70450; 71045; 80048; 80076; 84484; 85025; 93005; 99285